=== PATIENT | male | born 1955 | race Two or more races ===

== ENCOUNTER 2018-07-11 17:03 | Emergency (ER) | payer MEDICARE, OTHER ==
[~2018-07-11] VITALS: Ht 172.7 cm; Wt 72.6 kg
[2018-07-11 17:20] VITALS: BP 114/67
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
--- NOTE | 2018-07-11 18:00 | NUR ---
ED Nurse Note: sandwitches and juices provide. pt waer weather proper cloth.
[2018-07-11] MEDS ORDERED: LIDOCAINE700 M1 TP (18:02)
[2018-07-11] MEDS ORDERED: IBUPROFEN600 MG ORAL (18:02)
[2018-07-11] MEDS ORDERED: ROBAXIN500 MG PO (18:02)
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
--- NOTE | 2018-07-11 18:10 | NUR ---
ED Nurse Note: contacted [facility]. they refused to take pt.
[2018-07-11 19:08] VITALS: BP 121/71
--- NOTE | 2018-07-11 19:10 | NUR ---
Homeless Discharge: Patient is being discharged from medical care. Awake, alert and oriented x3. After care instructions, including referral to community resources were given. Patient verbalized understanding of After care instructions. Patient signed patient consent in the medical record for patient destination upon discharge. All medical devices such as ID band were removed. Patient ambulated out with all personal belongings with steady gait. group home information provide as requested.
[2018-07-12] MEDS ORDERED: IBUPROFEN600 MG ORAL (23:25)
== END 2018-07-11 19:13 | disposition home or self-care (01) ==
LOC: EDBD 17:03 → EMR 18:13
DX: M54.5 Low back pain (principal)
CPT/HCPCS: 99283

== ENCOUNTER 2018-07-12 23:01 | Emergency (ER) | payer MEDICARE, OTHER ==
[~2018-07-12] VITALS: Ht 162.6 cm; Wt 65.8 kg
[~2018-07-12 23:01] MED LIST: IBUPROFEN600 MG ORAL; LIDOCAINE700 M1 TP; ROBAXIN500 MG PO
[2018-07-12 23:02] VITALS: BP 122/82
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
[2018-07-12] MEDS ORDERED: IBUPROFEN600 MG ORAL (23:25)
--- NOTE | 2018-07-12 23:25 | Emergency Room Report ---
History of Present Illness General Chief Complaint: Back Pain-No Injury Source: Patient Present Illness HPI Is a 63-year-old male who call 911 for chief complaint of back pain. He said this is a chronic problem. Complaining of pain is severe. He is walking around without any difficulty. No trauma. No fever chills. has a bowel or urine. no numbness. Allergies: Coded Allergies: No Known Allergies (Unverified , 07/11/18) Patient History Past Medical History: see triage record, old chart reviewed Past Surgical History: other Pertinent Family History: none Social History: Denies: smoking Immunizations: other Reviewed Nursing Documentation: PMH: Agreed; PSxH: Agreed Nursing Documentation-PMH Past Medical History: No Stated History Review of Systems Eye: Denies: eye pain, blurred vision ENT: Denies: ear pain, nose congestion, throat swelling Respiratory: Denies: cough, shortness of breath Cardiovascular: Denies: chest pain, palpitations Gastrointestinal: Denies: abdominal pain, diarrhea, nausea, vomiting Musculoskeletal: Reports: back pain; Denies: joint pain Skin: Denies: rash Neurological: Denies: headache, numbness Endocrine: Denies: increased thirst, increased urine Hematologic/Lymphatic: Denies: easy bruising All Other Systems: negative except mentioned in HPI Physical Exam Vital Signs Date Time Temp Pulse Resp B/P (MAP) Pulse Ox O2 Delivery O2 Flow Rate FiO2 07/12/18 22:54 98.2 88 16 122/82 100 Room Air vitals normal Sp02 EP Interpretation: reviewed, normal General Appearance: well appearing, no apparent distress, alert Head: normocephalic, atraumatic Eyes: bilateral eye PERRL, bilateral eye EOMI ENT: hearing grossly normal, normal pharynx Neck: full range of motion, supple, no meningismus Respiratory: chest non-tender, lungs clear, normal breath sounds Cardiovascular #1: regular rate, rhythm, no murmur Gastrointestinal: normal bowel sounds, non tender, no mass, no organomegaly, no bruit, non-distended Musculoskeletal: back normal, gait/station normal, normal range of motion Psychiatric: mood/affect normal Skin: warm/dry Medical Decision Making Diagnostic Impression: Primary Impression: Back pain Qualified Codes: M54.9 - Dorsalgia, unspecified; G89.29 - Other chronic pain ER Course Patient complaint of back pain. No red flags indicate cauda equina syndrome, spinal after abscess or neoplastic process. He is walking around without any problem. We'll discharge home. He was here for the same thing yesterday for the same thing. Last Vital Signs Date Time Temp Pulse Resp B/P (MAP) Pulse Ox O2 Delivery O2 Flow Rate FiO2 07/12/18 23:02 98.2 78 16 122/82 100 Room Air Status: unchanged Disposition: HOME, SELF-CARE Condition: Stable Scripts Ibuprofen* (MOTRIN*) 600 Mg Tablet 600 MG ORAL THREE TIMES A DAY, #30 TAB 0 Refills Prov: Kleber Mckeon MD 07/12/18 Patient Instructions: Back Pain, Adult Additional Instructions: Follow-up with your doctor in 7 days. Return if symptom worsen. Kleber Mckeon MD Jul 12, 2018 23:25
[2018-07-12 23:34] VITALS: BP 125/81
--- NOTE | 2018-07-12 23:34 | NUR ---
ER DISCHARGE NOTE: Patient is cleared to be discharged per Dr. Mckeon. Pain meds given as ordered. Pt is A/O x4 on room air with stable vital signs. Pt was given D/C and prescription instructions and pt was able to verbalize understanding. Pt's ID band removed. Pt is able to ambulate with steady gait and took all belongings.
--- NOTE | 2018-07-13 04:07 | NUR ---
Note undone in EDM - 07/13/18 at 0409 by ROGELIO ER DISCHARGE NOTE: Patient is cleared to be discharged per Dr. Mckeon. Pain meds given as ordered. Pt is A/O x4 on room air with stable vital signs. Pt was given D/C and prescription instructions and pt was able to verbalize understanding. Pt's ID band removed. Pt is able to ambulate with steady gait and took all belongings.
== END 2018-07-12 23:45 | disposition home or self-care (01) ==
LOC: EDBD 23:01 → EMR 23:45
DX: M54.9 Dorsalgia, unspecified (principal); G89.29 Other chronic pain
CPT/HCPCS: 99282

== ENCOUNTER 2018-07-19 18:24 | Emergency (ER) | payer MEDICARE, OTHER ==
[~2018-07-19] VITALS: Ht 177.8 cm; Wt 66.7 kg
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
[2018-07-19 19:10] VITALS: BP 119/74
--- NOTE | 2018-07-19 19:16 | NUR ---
ED Nurse Note:pt. was abiodun from board and care with c/o neck pain, no injury reported
--- NOTE | 2018-07-19 19:21 | NUR ---
HAND-OFF: Report given to Anu.
--- NOTE | 2018-07-19 19:22 | NUR ---
ED Nurse Note: Received report from [facility]. Pt is A/o x 4. Vital signs stable at this time, will continue to monitor.
--- NOTE | 2018-07-19 19:28 | Diagnostic Imaging Report ---
EXAM: XR Cervical Spine, 4 or 5 Views CLINICAL HISTORY: PAIN TECHNIQUE: Frontal, lateral and oblique views of the cervical spine. COMPARISON: No relevant prior studies available. FINDINGS: Vertebrae: Loss of lordosis is present most likely due to muscle spasm and/or positioning. Note that the C7 vertebral body is not seen on this exam due to overlying shoulders on the lateral view. No unusual lytic or skeletal lesions of bone. No acute fracture. Disc spaces: Multilevel degenerative spine changes. No acute appearing fracture. Soft tissues: No airway narrowing or any other soft tissue normalities. Other findings: Calcified granulomata right apex. IMPRESSION: Multilevel degenerative spine changes without acute osseous abnormality or spondylolisthesis.
[2018-07-19] MEDS ORDERED: IBUPROFEN600 MG ORAL (20:02)
--- NOTE | 2018-07-19 20:10 | NUR ---
ED Nurse Note: Pain meds given , orange juice and Tunu sandwich provided.
[2018-07-19 20:27] VITALS: BP 113/72
--- NOTE | 2018-07-19 20:27 | NUR ---
ER DISCHARGE NOTE: Patient is cleared to be discharged per Nicolas. Pt is A/O x 4 on room air with stable vital signs. Pt was given D/C and prescription instructions and was able to verbalize understanding. Pt's ID band removed. Pt is able to ambulate with steady gait and took all belongings.
== END 2018-07-19 20:40 | disposition home or self-care (01) ==
LOC: EDBD 18:24 → EMR 18:44
DX: M54.2 Cervicalgia (principal); M50.30 Other cervical disc degeneration, unspecified cervical region
CPT/HCPCS: 72040; 80329; 93005; 99283

== ENCOUNTER 2019-06-18 15:21 | Emergency (ER) | payer OTHER ==
[~2019-06-18] VITALS: Ht 175.3 cm; Wt 61.7 kg
[2019-06-18] MEDS ORDERED: Methocarbamol 750mg tab ORAL ONE (15:30)
[2019-06-18] MEDS ORDERED: Ketorolac 30mg Inj IM ONE (15:30)
[2019-06-18 15:59] VITALS: BP 104/70
--- NOTE | 2019-06-18 16:00 | NUR ---
ED Nurse Note:pt. c/o chronic back pain, given pain meds
[2019-06-18] MEDS ORDERED: LIDODERM700 M1 TOPIC (16:31)
[2019-06-18] MEDS ORDERED: ROBAXIN-500MG ORAL (16:31)
[2019-06-18] MEDS ORDERED: IBUPROFEN600 MG ORAL (16:31)
--- NOTE | 2019-06-18 16:38 | Emergency Room Report ---
History of Present Illness General Chief Complaint: Back Pain-No Injury Source: EMS Present Illness HPI 64-year-old male with no symptom past medical history brought in by complaining of chronic low back pain. Denies any recent fall or injury. To be denied similar radiation. No bony tenderness noted. Patient is in no distress. Has full range of motion. Denies any saddle paresthesia, tingling numbness, urinary bowel incontinence. Has not taken medication for symptom relief. Denies any recent travel, fever and chills, chest pain, shortness of breath, palpitation, no other associate symptoms. COVID-19 risk:Travel to affect: No Has patient experienced pritchard: No Allergies: Coded Allergies: No Known Allergies (Unverified , 07/11/18) Patient History Past Medical History: see triage record Past Surgical History: none Pertinent Family History: none Immunizations: UTD Reviewed Nursing Documentation: PMH: Agreed; PSxH: Agreed Nursing Documentation-PMH Past Medical History: No History, Except For Review of Systems All Other Systems: negative except mentioned in HPI Physical Exam Vital Signs Date Time Temp Pulse Resp B/P (MAP) Pulse Ox O2 Delivery O2 Flow Rate FiO2 06/18/19 15:16 98.8 118 19 104/70 (81) 96 Room Air Sp02 EP Interpretation: reviewed General Appearance: no apparent distress, alert, GCS 15, non-toxic Head: normocephalic, atraumatic Eyes: bilateral eye normal inspection, bilateral eye PERRL ENT: hearing grossly normal, normal pharynx, no angioedema, normal voice Neck: full range of motion, supple/symm/no masses Respiratory: chest non-tender, lungs clear, normal breath sounds, no rhonchi, no wheezing, speaking full sentences Cardiovascular #1: regular rate, rhythm, no edema, no murmur, normal capillary refill Gastrointestinal: normal bowel sounds, non tender, soft, non-distended, no guarding, no rebound Rectal: deferred Genitourinary: no CVA tenderness Musculoskeletal: back normal, normal range of motion, no calf tenderness, pelvis stable, gait/station normal, non-tender Neurologic: alert, motor strength/tone normal, oriented x3, sensory intact, responsive, speech normal Psychiatric: judgement/insight normal, memory normal, mood/affect normal, no suicidal/homicidal ideation Skin: no rash Lymphatic: no adenopathy Medical Decision Making SIMON Attestation All my diagnosis and treatment plans were reviewed ad discussed with my supervising physician Dr. Marion Restraint Attestation The treating physician has assessed and agrees that patient is medically stable for outpatient disposition Diagnostic Impression: Primary Impression: Chronic back pain ER Course 64-year-old male with no symptom past medical history brought in by complaining of chronic low back pain. Denies any recent fall or injury. To be denied similar radiation. No bony tenderness noted. Patient is in no distress. Has full range of motion. Denies any saddle paresthesia, tingling numbness, urinary bowel incontinence. Has not taken medication for symptom relief. Denies any recent travel, fever and chills, chest pain, shortness of breath, palpitation, no other associate symptoms. Ddx considered but are not limited to: Lumbar spine sprain, strain, fracture, contusion, neuropathy Vital signs: are WNL, pt. is afebrile H&PE are most consistent with: Chronic low back pain ORDERS: No x-ray necessary patient has been experiencing these symptoms for several months. Robaxin, Motrin, lidocaine patch ER intervention: Toradol, Robaxin DISCHARGE: At this time pt. is stable for d/c to home. Will provide printed patient care instructions, and any necessary prescriptions. Care plan and follow up instructions have been discussed with the patient prior to discharge. Patient follow-up primary care provider, avoid strenuous physical activity, if worsening symptoms return to the emergency room Last Vital Signs Date Time Temp Pulse Resp B/P (MAP) Pulse Ox O2 Delivery O2 Flow Rate FiO2 06/18/19 16:13 98.8 06/18/19 15:59 19 104/70 96 Room Air 06/18/19 15:16 118 Status: improved Disposition: HOME, SELF-CARE Condition: Stable Scripts Lidocaine Patch* (Lidoderm Patch*) 1 Each Adh..patch 1 PATCH TOPIC DAILY, #30 PATCH Patch(es) may remain in place for up to 12 hours in any 24-hour period. Prov: Destiney Layton 06/18/19 Ibuprofen* (MOTRIN*) 600 Mg Tablet 600 MG ORAL THREE TIMES A DAY, #30 TAB 0 Refills Prov: Destiney Layton 06/18/19 Methocarbamol* (ROBAXIN-500*) 500 Mg Tablet 500 MG ORAL TID PRN for For Pain, #15 TAB 0 Refills Prov: Destiney Layton 06/18/19 Patient Instructions: Back Pain, Adult Destiney Layton Jun 18, 2019 16:38
[2019-06-18 16:50] VITALS: BP 104/70
--- NOTE | 2019-06-18 16:50 | NUR ---
ER DISCHARGE NOTE:pt. was given clothes ,food, prescriptions faxed to pharmacy and confermed, given bus card Patient is cleared to be discharged per ERMD, pt is aox4, on room air, with stable vital signs. pt was given dc and prescription homeless discharge with shelters information instructions, pt was able to verbalize understanding, pt id band and iv site removed without complications. pt is able to ambulate with steady gait. pt took all belongings.
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
== END 2019-06-18 16:50 | disposition home or self-care (01) ==
LOC: EDBD 15:21 → EMR 15:50
DX: M54.5 Low back pain (principal); G89.29 Other chronic pain
CPT/HCPCS: 96372; 99283; J1885

== ENCOUNTER 2020-03-13 22:39 | Emergency (ER) | payer OTHER ==
[~2020-03-13] VITALS: Ht 170.2 cm; Wt 59.0 kg
[~2020-03-13 22:39] MED LIST changes: +LIDODERM700 M1 TOPIC; +ROBAXIN-500MG ORAL
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
[2020-03-13 22:48] VITALS: BP 120/70
[2020-03-13] MEDS ORDERED: Methocarbamol 750mg tab ORAL ONE (23:00)
[2020-03-13] MEDS ORDERED: Ketorolac 60mg Inj IM ONE (23:00)
[2020-03-13] MEDS ORDERED: TYLENOL EXTRA500 MG ORAL (23:16)
--- NOTE | 2020-03-13 23:16 | Emergency Room Report ---
History of Present Illness General Chief Complaint: Pain Source: Patient Present Illness HPI 64-year-old male with history of chronic back pain presents with generalized body aches. He is a poor historian and states his symptoms have been going "for a long time" He states he is a resident of [facility] and states that his body pains get worse when "the lady at the place is mean to me" Denies SI HI auditory or visual hallucination. When asked where his pain is he points to his bilateral wrists, elbows, shoulders. He also complains that he is hungry. Denies trauma, falls, CHAVIRA, neck pain, photophobia, rash, CP, abd pain, back pain, SOB, fever, hematuria, dysuria, melena, hematochezia, flank pain or any other symptoms. The patient's symptoms were gradual onset, severity was moderate, duration since " weeks". Quality: aching Past medical history: chronic back pain Past surgical history: appendectomy Smoking: ++tobacco Alcohol use: Denies Drug use: Denies Review of systems: CONST: No fevers or chills, No night sweats PULMONARY: No productive cough, No shortness of breath CARDIAC: No chest pain, No palpitations GI: No vomiting, No diarrhea , No melena_or_BRBPR : No dysuria, No hematuria, No discharge NEURO: No new_focal_weakness_or_numbness, No confusion, No vision changes 14 point Review of Systems is otherwise negative except per HPI Physical Exam: GENERAL: Awake_alert_ nontoxic, no acute distress Spo2 97% on RA -normal EYES: Extraocular muscles are intact. Conjunctivae clear. Lids without swelling ENT: External nose and ear normal_in_appearance. Oropharynx clear. Head_atraumatic, Moist_oral_mucosa NECK: No JVD. No meningismus. No thyromegaly. Supple. Trachea midline RESP: Normal respiratory effort. Symmetric rise. No stridor. Clear_to_auscultation_No_rales_No_wheezes CARDIAC: Regular rate and regular rhytm. No_significant pedal edema. ABDOMEN: Soft. Nondistended. Nontender_No_rebound_or_guarding. No pulsatile abdominal mass. No CVA tenderness to palpation. Right lower quadrant surgical scar from previous appendectomy MSK: Normal muscle tone, without rigidity. Extremities without asymmetric deformity or swelling. Upper extremity exam: Bilateral Elbow: No swelling / effusion appreciated, no significant pain with passive range of motion Wrist: No swelling / effusion appreciated, no significant pain with passive range of motion Lateral epicondyle: no tenderness / swelling / ecchymoses Medial epicondyle: no tenderness / swelling / ecchymoses Radial pulse: 2+ Capillary refill: <3 seconds in all fingers All fingers: full range of motion without any tenderness / swelling / deformity / evidence of infection Scaphoid: no tenderness / swelling / ecchymoses, no pain with axial loading of the thumb Radian / Median / Ulnar nerves: all intact (finger opposition, finger adduction / abduction, thumb dorsiflexion) Sensation intact to light touch: in all fingers Strength 5/5 with: wrist dorsi / volar flexion, hand gold blower, elbow flexion / extension SKIN: Warm and dry. No visible cyanosis or pallor NEUROLOGIC: Alert, oriented x3. Motor_and_sensation_grossly_intact. No truncal ataxia. Gait_normal Psych: Normal mood and affect, normal judgment and insight - COORDINATION OF CARE Case was discussed with: Patient Medical Decision Making/Plan: DDx: fatigue vs dehydration vs depression vs musculoskeletal pain /strain Patient is a 64-year-old male presenting with generalized body ache for several weeks. Denies trauma, fever, CP or anginal equivalent. He is well appearing on my exam with no gross deformity, neurologic abnormality, unequal pulses, petechial rash, or nuchal rigidity. Patient was fed since he complained of hunger. Abdominal exam was non tender and non peritoneal. He denies SI HI, auditory or visual hallucinations. Clothes were provided. A Auto [employer] Att[employer] consult was offered to the patient prior to discharge but the patient declined. He is sure he is a SNF resident and not homeless. All needs were met during this ED visit including food and water, change of clothes, longterm referral/resources, and transportation. Will DC with tylenol Pertinent results reviewed with the patient. I educated the patient on the current treatment plan including the risks, benefits, and alternatives. I also discussed the extent and limitations of the current evaluation. The patient expressed understanding and agreement with plan. I recommended PMD follow-up within 1-2 days. Also advised that the patient return to the Emergency Department as soon as possible if they experience any new, persistent, or wo rsening symptoms. Allergies: Coded Allergies: No Known Allergies (Unverified , 07/11/18) COVID-19 Screening Contact w/high risk pt: No Experienced COVID-19 symptoms?: No COVID-19 Testing performed BAIT PACKER: No Nursing Documentation-[facility] Past Medical History: No History, Except For Physical Exam Vital Signs Date Time Temp Pulse Resp B/P (MAP) Pulse Ox O2 Delivery O2 Flow Rate FiO2 03/13/20 22:43 97.9 80 18 112/67 (82) 97 Room Air Sp02 EP Interpretation: reviewed, normal Medical Decision Making Diagnostic Impression: Primary Impression: Generalized body aches Last Vital Signs Date Time Temp Pulse Resp B/P (MAP) Pulse Ox O2 Delivery O2 Flow Rate FiO2 03/13/20 22:48 97.9 86 18 120/70 97 Room Air Disposition: HOME, SELF-CARE Admit Decision Time: 23:15 Condition: Stable Scripts Acetaminophen* (TYLENOL EXTRA STRENGTH*) 500 Mg Tablet 500 MG ORAL Q8H PRN for Prn Headache/Temp > 101, #30 TAB 0 Refills Prov: Kelle Moy D.O. 03/13/20 Patient Instructions: Muscle Pain, Adult Additional Instructions: Instructions for patient/corporate scheduler: Follow up with your physician in 1-2 days. Follow-up with your doctor sooner if your condition requires a more timely clinical reevaluation. Return to the emergency department immediately if you feel that your condition is worsening or if you have any new or concerning symptoms. Review your discharge instructions and take any prescriptions given as instructed. [facility] PROVIDES FREE OR LOW-COST HEALTH SERVICES TO PEOPLE WHO CAN SHOW PROOF THAT THEY LIVE IN [facility]. TO FIND MORE CLINICS PARTNERED WITH THE [facility] TO PROVIDE SERVICE, PLEASE CALL . Kelle Moy D.O. Mar 13, 2020 23:16
[2020-03-13 23:25] VITALS: BP 125/76
--- NOTE | 2020-03-13 23:25 | NUR ---
Homeless Discharge: Patient is being discharged from medical care. Awake, alert and oriented x3. After care instructions, including referral to community resources were given. Patient verbalized understanding of After care instructions; at this time patient does not request medications, equipment or placement. Patient signed patient consent in the medical record for patient destination upon discharge. All medical devices such as band were removed. Patient ambulated out with all personal belongings with steady gait.
== END 2020-03-13 23:25 | disposition home or self-care (01) ==
LOC: EMR 22:50
DX: R52 Pain, unspecified (principal); M25.532 Pain in left wrist; M25.531 Pain in right wrist; M25.522 Pain in left elbow; M25.521 Pain in right elbow; M25.512 Pain in left shoulder; M25.511 Pain in right shoulder; Z90.89 Acquired absence of other organs; F17.200 Nicotine dependence, unspecified, uncomplicated
CPT/HCPCS: 96372; 99283